=== PATIENT | male | born 1985 | race Two or more races ===

== ENCOUNTER 2019-06-05 15:40 | Emergency (ER) | payer OTHER ==
[~2019-06-05] VITALS: Ht 160 cm; Wt 56.7 kg
[2019-06-05 15:55] VITALS: BP 114/68
[2019-06-05] MEDS ORDERED: CEPH-264 PO (16:11)
[2019-06-05] MEDS ORDERED: MUPI22OI2 TP (16:11)
[2019-06-05] MEDS ORDERED: HYDR28.480 TOP (16:11)
--- NOTE | 2019-06-05 16:12 | PHYS DOC ---
Past Medical History Past Medical History: No Pertinent History Additional Past Surgical Histo: R hand surgery Smoking: Cigarettes, Less than 1pk/day Alcohol Use: Occasionally Drug Use: None Social History lives with girlfriend Adult General Chief Complaint Chief Complaint: INSECT BITE [facility] HPI Patient is a 34 year old male who presents to the ER with complaints of an insect bite to his right buttock for the last 2 days. PT states at first the area was very itchy and red. Today the redness has increased and the area is now tender and itching. Pt denies any drainage from the site. He currently rates his pain a 8/10 on the pain scale and describes it as a burning sensation. There are no alleviating factors, the pain increases with touch. Review of Systems Review of Systems Constitutional: Denies fever or chills [] Eyes: Denies change in visual acuity, redness, or eye pain [] HENT: Denies nasal congestion or sore throat [] Respiratory: Denies cough or shortness of breath [] Cardiovascular: No additional information not addressed in HPI [] GI: Denies abdominal pain, nausea, vomiting, or diarrhea [] : Denies dysuria or hematuria [] Musculoskeletal: Denies back pain or joint pain [] Integument: see HPI Neurologic: Denies headache, focal weakness or sensory changes [] Complete systems were reviewed and found to be within normal limits, except as documented in this note. Physical Exam Physical Exam Constitutional: Well developed, well nourished, no acute distress, non-toxic appearance. [] HENT: Normocephalic, atraumatic, bilateral external ears normal, nose normal. [] Eyes: PERRLA, EOMI, conjunctiva normal, no discharge. [] Neck: Normal range of motion, no stridor. [] Cardiovascular:Heart rate regular rhythm Lungs & Thorax: respirations even and unlabored, no retractions. Skin: Warm, dry; 3 cm diameter circular area of erythema with centralized punctum noted to lower right buttock, tenderness and warmth on palpation, no drainage, consistent with infected insect bite and allergic reaction to insect bite. Back: No tenderness, no CVA tenderness. [] Extremities: No cyanosis, ROM intact, no edema. [] Neurologic: Alert and oriented X 3, nno focal deficits noted. [] Psychologic: Affect normal, judgement normal, mood normal. [] Current Patient Data Vital Signs Vital Signs Date Time Temp Pulse Resp B/P (MAP) Pulse Ox O2 Delivery O2 Flow Rate FiO2 06/05/19 15:55 98.3 59 18 114/68 (83) 97 Room Air 98.3 EKG EKG [] Radiology/Procedures Radiology/Procedures [] Course & Med Decision Making Course & Med Decision Making Pertinent Labs and Imaging studies reviewed. (See chart for details) [] Dragon Disclaimer Dragon Disclaimer This electronic medical record was generated, in whole or in part, using a voice recognition dictation system. Departure Departure Impression: Primary Impression: Allergic reaction to insect bite Additional Impression: Infected insect bite of buttock Disposition: HOME, SELF-CARE Condition: STABLE Referrals: NO PCP (PCP) Patient Instructions: Cellulitis, [id number], Insect Bite, [id number] Additional Instructions: Fill the prescriptions and use as directed. You may also apply topical hydrocortisone cream or benadryl cream to the area as needed for itching. Recommend warm soaks 3x daily. Follow up with primary care doctor if symptoms persist, return to the ER if symptoms worsen. Scripts Hydrocortisone (Hydrocortisone) 28.4 Gm Cream..g. 1 DAMARIS TOP BID for 5 Days, #1 TUBE 0 Refills 2.5% strength hydrocortisone cream Prov: BUDDY ARMSTRONG APRN 06/05/19 Mupirocin (MUPIROCIN OINTMENT) 22 Gm Oint...g. 1 DAMARIS TP TID for WOUND CARE for 5 Days, #1 TUBE 0 Refills Prov: BUDDY ARMSTRONG APRN 06/05/19 Cephalexin (KEFLEX) 500 Mg Capsule 500 MG PO QID for 5 Days, #20 CAP 0 Refills Prov: BUDDY ARMSTRONG APRN 06/05/19 Problem Qualifiers Additional Impression: Infected insect bite of buttock Encounter type: initial encounter Qualified Codes: S30.860A - Insect bite (nonvenomous) of lower back and pelvis, initial encounter; L08.9 - Local infection of the skin and subcutaneous tissue, unspecified; W57.XXXA - Bitten or stung by nonvenomous insect and other nonvenomous arthropods, initial encounter BUDDY ARMSTRONG APRN Jun 05, 2019 16:12
== END 2019-06-05 16:17 | disposition home or self-care (01) ==
LOC: ER 15:40
DX: T63.481A Toxic effect of venom of other arthropod, accidental (unintentional), initial encounter (principal); L08.9 Local infection of the skin and subcutaneous tissue, unspecified; F17.210 Nicotine dependence, cigarettes, uncomplicated; Y92.89 Other specified places as the place of occurrence of the external cause
CPT/HCPCS: 99283